=== PATIENT | male | born 1940 | race Caucasian/White ===

== ENCOUNTER 2022-04-01 13:45 | Outpatient (CLI) | payer MEDICARE, SELFPAY ==
--- NOTE | ~2022-04-01 | CT_ITS ---
EXAMINATION: CT hand RT wo/w con DATE: 04/01/2022 14:43 INDICATION: Squamous cell carcinoma of hand. TECHNIQUE: Computed tomography (CT) of the right hand was performed without and with 100 mL Omnipaque 350 intravenous contrast. Automated exposure control and iterative reconstruction technique were emp loyed. The dose-length product was 1014.64 mGy-cm. COMPARISON: None FINDINGS: Bone alignment is normal. No fracture. There is mild osteoarthritis of triscaphe joint and first carpometacarpal joint, first and third metacarpophalangeal joints, and some of the interphalang eal joints. There is severe osteoarthritis of third distal interphalangeal joint and moderate osteoar thritis of second and fifth distal interphalangeal joints. There is focal skin thickening dorsal to d iaphysis of second metacarpal with overlying hyperdense material that may be a bandage. IMPRESSION: 1. Focal skin thickening dorsal to diaphysis of second metacarpal with overlying hyperdense material that may be a bandage. 2. Polyarticular osteoarthritis. Reviewed, dictated and finalized at location A. IMPRESSION: 1. Focal skin thickening dorsal to diaphysis of second metacarpal with overlyin g hyperdense material that may be a bandage. 2. Polyarticular osteoarthritis.
[2022-04-01 14:34] LABS: Estimated Glomerular Filt Rate 37
== END 2022-04-01 13:46 | disposition home or self-care (01) ==
PROVIDERS: PCP Family Medicine
DX: C44.92 Squamous cell carcinoma of skin, unspecified (principal); M18.11 Unilateral primary osteoarthritis of first carpometacarpal joint, right hand; M19.041 Primary osteoarthritis, right hand
CPT/HCPCS: 73202; Q9967